=== PATIENT | female | born 1985 | race Caucasian/White ===

== ENCOUNTER → 2019-01-09 | Outpatient (CLI) | payer SELFPAY | LOC: OD 11:16 | PROVIDERS: ATTEND Nurse Practitioner Primary Care | DX: Z31.83 Encounter for assisted reproductive fertility procedure cycle (principal) | CPT/HCPCS: 36415; 84702 ==

== ENCOUNTER → 2019-01-14 | Outpatient (CLI) | payer SELFPAY | LOC: OD 09:41 | PROVIDERS: ATTEND Obstetrics & Gynecology Reproductive Endocrinology | DX: E28.9 Ovarian dysfunction, unspecified (principal) | CPT/HCPCS: 36415; 82670; 83001; 83002; 84144; 84443; 84702 ==

== ENCOUNTER → 2019-02-11 | Outpatient (CLI) | payer SELFPAY | LOC: OD 12:09 | PROVIDERS: ATTEND Nurse Practitioner Primary Care | DX: Z31.83 Encounter for assisted reproductive fertility procedure cycle (principal) | CPT/HCPCS: 36415; 84702 ==

== ENCOUNTER → 2019-02-24 | Outpatient (CLI) | payer MEDICAID ==
[2019-02-24 12:09] LABS: FREE T3 3.19 pg/mL (2.77-5.27); FREE T4 (FREE THYROXINE) 1.07 ng/dL (0.78-2.19)
[2019-02-24 12:23] LABS: THYROID STIMULATING HORMONE 2.37 uIU/mL (0.47-4.68)
== END ==
LOC: OD 10:14
PROVIDERS: ATTEND Nurse Practitioner Primary Care
DX: Z31.83 Encounter for assisted reproductive fertility procedure cycle (principal); E03.9 Hypothyroidism, unspecified
CPT/HCPCS: 36415; 82670; 84144; 84439; 84443; 84481; 84702

== ENCOUNTER → 2019-03-04 | Outpatient (CLI) | payer MEDICAID | LOC: OD 10:37 | PROVIDERS: ATTEND Nurse Practitioner Primary Care | DX: Z31.83 Encounter for assisted reproductive fertility procedure cycle (principal) | CPT/HCPCS: 36415; 82670; 84144; 84443; 84702 ==